=== PATIENT | female | born 1945 | race Caucasian/White ===

== ENCOUNTER → 2016-05-22 | Outpatient (CLI) | payer MEDICARE, OTHER ==
[~2016-05-22] MED LIST: LISI-363 PO; LORA1TAB PO; METF500 PO; PREV30CA36 PO; SAXA5TAB2 PO; THIO5CAP PO; TRUETEST STRIPS
[2016-05-22 08:39] LABS: AUTOMATED NEUTROPHIL # 5.3 TH/MM3 (1.8-7.7); BASOPHIL # 0.1 TH/MM3 (0-0.2); BASOPHIL % 1.1 % (0.0-2.0); EOSINOPHIL # 0.1 TH/MM3 (0-0.4); EOSINOPHIL % 1.2 % (0.0-4.0); HEMO FLAGS DIFF FINAL; LYMPH % 31.6 % (9.0-44.0); LYMPHOCYTE # 2.7 TH/MM3 (1.0-4.8); MEAN CELL VOLUME 83.4 FL (80.0-100.0); MEAN CORPUSCULAR HEMOGLOBIN 28.7 PG (27.0-34.0); MEAN CORPUSCULAR HGB CONC 34.4 % (32.0-36.0); MONO % 4.8 % (0.0-8.0); NEUT % 61.3 % (16.0-70.0); PLATELET COUNT 281 TH/MM3 (150-450); RED BLOOD COUNT 5.03 MIL/MM3 (4.00-5.30); RED CELL DISTRIBUTION WIDTH 12.9 % (11.6-17.2); WHITE BLOOD COUNT 8.7 TH/MM3 (4.0-11.0)
[2016-05-22 08:44] LABS: CREATININE RANDOM URINE LESS THAN 13 MG/DL (27-300)
[2016-05-22 08:53] LABS: MICRO ALBUMIN RANDOM URINE RAW LESS THAN 5.0 MG/L (0.0-30.0); MICROALBUMIN/CREAT RATIO RAND 0 MG/G CRE (0-30)
[2016-05-22 09:02] LABS: ALT (GPT) 25 U/L (10-53); ANION GAP 7 MEQ/L (5-15); AST (GOT) 11 U/L (15-37); BICARBONATE 28.2 MEQ/L (21.0-32.0); BLOOD UREA NITROGEN 10 MG/DL (7-18); CHLORIDE 100 MEQ/L (98-107); GLOMERULAR FILTRATION RATE 79 ML/MIN (>89); GLUCOSE,FASTING 178 MG/DL (74-99); POTASSIUM 4.2 MEQ/L (3.5-5.1); SODIUM (NA) 135 MEQ/L (136-145)
[2016-05-22 09:29] LABS: ALKALINE PHOSPHATASE 67 U/L (45-117); FREE T4 0.92 NG/DL (0.76-1.46); HDL CHOLESTEROL 43.2 MG/DL (40.0-60.0); LDL CHOLESTEROL 158 MG/DL (0-99); LDL CHOLESTEROL DIRECT 171 MG/DL (0-99); TOTAL BILIRUBIN ADULT 0.5 MG/DL (0.2-1.0)
[2016-05-22 12:04] LABS: HEMOGLOBIN A1a 1.2 %; HEMOGLOBIN A1b 1.4 %; HEMOGLOBIN Ao 79.8 %; HEMOGLOBIN F 1.7 %; HEMOGLOBIN LA1C 2.7 %; HEMOGLOBIN P3 4.3 %
[2016-05-26 23:51] LABS: THYROGLOBULN 17.8 ng/mL (())
== END ==
LOC: CLAB 07:48
DX: E11.9 Type 2 diabetes mellitus without complications (principal); E03.9 Hypothyroidism, unspecified
CPT/HCPCS: 36415; 80053; 80061; 82043; 82306; 82607; 83036; 83525; 83721; 84432; 84439; 84443; 84681; 85025; 86800

== ENCOUNTER → 2016-07-31 | Outpatient (CLI) | payer MEDICARE, OTHER ==
[2016-07-31 07:17] LABS: AUTOMATED NEUTROPHIL # 7.4 TH/MM3 (1.8-7.7); BASOPHIL # 0.1 TH/MM3 (0-0.2); EOSINOPHIL # 0.2 TH/MM3 (0-0.4); EOSINOPHIL % 1.3 % (0.0-4.0); HEMATOCRIT 41.2 % (35.0-46.0); HEMO FLAGS DIFF FINAL; LYMPH % 30.6 % (9.0-44.0); LYMPHOCYTE # 3.7 TH/MM3 (1.0-4.8); MEAN CELL VOLUME 82.3 FL (80.0-100.0); MEAN CORPUSCULAR HEMOGLOBIN 28.8 PG (27.0-34.0); MONO % 6.2 % (0.0-8.0); NEUT % 60.9 % (16.0-70.0); PLATELET COUNT 284 TH/MM3 (150-450); RED BLOOD COUNT 5.01 MIL/MM3 (4.00-5.30); WHITE BLOOD COUNT 12.1 TH/MM3 (4.0-11.0)
[2016-07-31 08:03] LABS: ALKALINE PHOSPHATASE 68 U/L (45-117); ALT (GPT) 25 U/L (10-53); ANION GAP 9 MEQ/L (5-15); AST (GOT) 11 U/L (15-37); BICARBONATE 28.5 MEQ/L (21.0-32.0); BLOOD UREA NITROGEN 13 MG/DL (7-18); CHLORIDE 99 MEQ/L (98-107); GLOMERULAR FILTRATION RATE 52 ML/MIN (>89); GLUCOSE,FASTING 205 MG/DL (74-99); HDL CHOLESTEROL 37.1 MG/DL (40.0-60.0); LDL CHOLESTEROL 72 MG/DL (0-99); POTASSIUM 4.4 MEQ/L (3.5-5.1); SODIUM (NA) 136 MEQ/L (136-145); TOTAL BILIRUBIN ADULT 0.4 MG/DL (0.2-1.0)
[2016-07-31 08:09] LABS: MICRO ALBUMIN RANDOM URINE RAW 6.6 MG/L (0.0-30.0)
[2016-07-31 14:51] LABS: HEMOGLOBIN A1a 1.4 %; HEMOGLOBIN A1b 1.4 %; HEMOGLOBIN Ao 79.7 %; HEMOGLOBIN F 1.8 %; HEMOGLOBIN LA1C 2.6 %; HEMOGLOBIN P3 4.3 %
== END ==
LOC: CLAB 06:42
DX: R07.89 Other chest pain (principal); Z68.31 Body mass index [BMI] 31.0-31.9, adult; R94.39 Abnormal result of other cardiovascular function study; R06.09 Other forms of dyspnea; I10 Essential (primary) hypertension; E78.2 Mixed hyperlipidemia; E11.9 Type 2 diabetes mellitus without complications
CPT/HCPCS: 36415; 80053; 80061; 82043; 82248; 82550; 82607; 83036; 84443; 85025

== ENCOUNTER → 2016-09-21 | Outpatient (CLI) | payer MEDICARE, OTHER ==
[2016-09-21 10:16] LABS: FREE T4 0.92 NG/DL (0.76-1.46)
== END ==
LOC: CLAB 08:37
PROVIDERS: ATTEND Family Medicine
DX: R53.81 Other malaise (principal); E55.9 Vitamin D deficiency, unspecified; E53.9 Vitamin B deficiency, unspecified; Z11.3 Encounter for screening for infections with a predominantly sexual mode of transmission
CPT/HCPCS: 36415; 80074; 82306; 82607; 84439; 84443

== ENCOUNTER → 2016-11-03 | Outpatient (CLI) | payer MEDICARE, OTHER ==
[2016-11-03 10:04] LABS: AUTOMATED NEUTROPHIL # 5.4 TH/MM3 (1.8-7.7); BASOPHIL # 0.1 TH/MM3 (0-0.2); BASOPHIL % 0.9 % (0.0-2.0); EOSINOPHIL # 0.1 TH/MM3 (0-0.4); EOSINOPHIL % 1.1 % (0.0-4.0); HEMATOCRIT 41.5 % (35.0-46.0); HEMO FLAGS DIFF FINAL; LYMPH % 26.2 % (9.0-44.0); LYMPHOCYTE # 2.2 TH/MM3 (1.0-4.8); MEAN CELL VOLUME 85.3 FL (80.0-100.0); MEAN CORPUSCULAR HEMOGLOBIN 29.1 PG (27.0-34.0); MEAN CORPUSCULAR HGB CONC 34.1 % (32.0-36.0); MONO % 6.2 % (0.0-8.0); NEUT % 65.6 % (16.0-70.0); PLATELET COUNT 267 TH/MM3 (150-450); RED BLOOD COUNT 4.87 MIL/MM3 (4.00-5.30); RED CELL DISTRIBUTION WIDTH 12.7 % (11.6-17.2); WHITE BLOOD COUNT 8.2 TH/MM3 (4.0-11.0)
[2016-11-03 10:15] LABS: ANION GAP 8 MEQ/L (5-15); AST (GOT) 10 U/L (15-37); BICARBONATE 27.5 MEQ/L (21.0-32.0); BLOOD UREA NITROGEN 12 MG/DL (7-18); CHLORIDE 102 MEQ/L (98-107); GLOMERULAR FILTRATION RATE 71 ML/MIN (>89); GLUCOSE,FASTING 185 MG/DL (74-99); POTASSIUM 4.4 MEQ/L (3.5-5.1); SODIUM (NA) 137 MEQ/L (136-145)
[2016-11-03 10:23] LABS: CREATININE RANDOM URINE 53 MG/DL (27-300)
[2016-11-03 10:26] LABS: ALKALINE PHOSPHATASE 63 U/L (45-117); ALT (GPT) 26 U/L (10-53); FREE T4 0.93 NG/DL (0.76-1.46); HDL CHOLESTEROL 38.9 MG/DL (40.0-60.0); LDL CHOLESTEROL 91 MG/DL (0-99); LDL CHOLESTEROL DIRECT 100 MG/DL (0-99); TOTAL BILIRUBIN ADULT 0.6 MG/DL (0.2-1.0)
[2016-11-03 10:33] LABS: MICRO ALBUMIN RANDOM URINE RAW LESS THAN 5.0 MG/L (0.0-30.0); MICROALBUMIN/CREAT RATIO RAND 9 MG/G CRE (0-30)
[2016-11-03 16:08] LABS: HEMOGLOBIN A1a 1.2 %; HEMOGLOBIN A1b 1.2 %; HEMOGLOBIN Ao 80.2 %; HEMOGLOBIN F 1.8 %; HEMOGLOBIN LA1C 2.5 %; HEMOGLOBIN P3 3.9 %
[2016-11-05 17:53] LABS: ISLET CELL ANTIBODY SCREEN NEGATIVE (NEGATIVE); ISLET CELL ANTIBODY TITER ND JDF (())
[2016-11-06 03:51] LABS: THYROGLOB ABS LESS THAN 1 IU/mL (< OR = 1)
== END ==
LOC: CLAB 09:04
DX: E78.5 Hyperlipidemia, unspecified (principal); E11.9 Type 2 diabetes mellitus without complications; E03.9 Hypothyroidism, unspecified; E66.9 Obesity, unspecified
CPT/HCPCS: 36415; 80053; 80061; 82043; 82985; 83036; 83525; 83721; 84439; 84443; 84681; 85025; 86341; 86376; 86800